=== PATIENT | male | born 1940 | race Caucasian/White ===

== ENCOUNTER → 2024-02-29 08:10 | Outpatient (REF) | payer MEDICARE, OTHER, SELFPAY ==
[2024-02-29 09:35] LABS: ALT (SGPT) 20 U/L (0-50); AST (SGOT) 29 U/L (17-59); Albumin 4.4 g/dl (3.5-5.0); Alkaline Phosphatase 104 U/L (38-126); Blood Urea Nitrogen 24 mg/dl (9-20); Carbon Dioxide 28 mmol/L (22-30); Chloride 97 mmol/L (98-107); Glucose 109 mg/dl (70-99); Sodium 138 mmol/L (135-145); Total Bilirubin 0.9 mg/dl (0.2-1.3); Total Protein 7.8 g/dl (6.3-8.2); eGFR > 60.00
== END ==
LOC: REG 08:10
PROVIDERS: ATTENDING PHYSICIAN Physician Assistant Medical; FAMILY PHYSICIAN Family Medicine
DX: Z00.8 Encounter for other general examination (principal); I42.9 Cardiomyopathy, unspecified; M79.89 Other specified soft tissue disorders
CPT/HCPCS: 36415; 80053

== ENCOUNTER 2024-03-05 00:06 | Emergency (ER) | payer MEDICARE, OTHER, SELFPAY ==
[2024-03-05 00:06] VITALS: BMI 32.9
[2024-03-05 00:10] VITALS: BP 146/76
--- NOTE | 2024-03-05 01:05 | ED.GENMED ---
History of Present Illness
General
Chief Complaint: Extremity Pain (non-traumatic)
Source: patient
Exam Limitations: none
Time Seen by Provider: 03/05/24 00:52
Travel History
Have you had any contact with someone who has COVID-19?: No
Do you have any symptoms of coronavirus? Fever > 100 degrees, chills, cough, shortness of breath, sore throat, loss of taste or smell, muscle aches, or headache?: No
History of Present Illness
History of Present Illness:
Patient with intermittent right leg pain for a long time. Comes and goes. No precipitating event. Pain is worse this evening. Pain is in the right thigh. Nonweightbearing or positional. No swelling no warmth no fever no other complaints.
Patient took Tylenol prior to ER
Past History
Past History
ED Past Medical History: CAD, Cancer (Prostate CA), GERD, HTN, Hypercholesterolemia, NIDDM, Psychiatric (Depression) and Other (Abdominal aortic aneurysm, colitis, Crohn's disease, diverticulosis, polyps, renal insufficiency, rib fractures, uveitis,)
ED Past Surgical History: Orthopedic ( L3-L4 laminectomy and fusion,) and Other ( Right nephrectomy, prostatectomy, left nasal lesion removed, cataract surgery, AAA, Right iliac artery graft, left eye surgery)
Social History
Tobacco: Former smoker
Alcohol: None
Drug: None
Personal:
Living: with family
Employment: Retired
Review of Systems
Review of Systems
All Other Systems: Not applicable
Constitutional: Denies fever
Phy Exam
Physical Exam
Physical Exam:
GENERAL: Alert and oriented. Sitting up in the bed rubbing his right anterior thigh.
CARDIAC: Regular rate and rhythm without any obvious murmurs.
LUNGS: Clear breath sounds,normal
ABDOMEN: Soft, without focal tenderness or distention. No pulsatile mass
NEUROLOGICAL: Alert and oriented , grossly non-focal
SKIN: Warm and dry, no rash or lesion, no discoloration, skin intact.
MUSCULOSKELETAL: Chronic nonpitting edema to both lower extremities. Good color to both lower extremities. No warmth or erythema. Capillary refill intact. Strong posterior tibial and dorsalis pedis pulses dopplered bilaterally. Negative
straight leg raising. No point tenderness to the right thigh no erythema no swelling.
PSYCH: Normal and appropriate interaction.
Course
Orders/Labs/Results
Orders:
Orders
03/05/24 01:04
IV Insert/Care/Rem.- Treatment PRN
US Periph Venous LOWER Ext RT Urgent
Comment:
Reason For Exam: Nontraumatic right leg pain
03/05/24 01:05
Ketorolac [Toradol] 15 mg IV NOW STA
Morphine Sulfate 2 mg IV NOW STA
03/05/24 01:40
Basic Metabolic Panel Urgent
CPK [Creatine Phosphokinase] Urgent
Complete Blood Count/With Diff Urgent
Abnormal Lab Results
03/05/24
01:40
RBC 4.32 L 10^6/uL
(4.70-6.10)
Hgb 12.1 L g/dL
(13.0-18.0)
Hct 36.0 L %
(39.0-52.0)
RDW 14.7 H %
(11.5-14.5)
Absolute Monos (auto) 0.9 H 10^3/uL
(0.1-0.6)
Monocytes % 13.5 H %
(1.7-9.3)
Potassium 3.4 L mmol/L
(3.5-5.1)
BUN 21 H mg/dl
(9-20)
Glucose 143 H mg/dl
(70-99)
Creatine Kinase 336 H U/L
(55-170)
03/05/24 01:40
03/05/24 01:40
Vital Signs
Initial and Last Documented VS:
Initial Vital Signs
Temp Pulse Resp BP Pulse Ox
98.5 F 74 18 146/76 99
03/05/24 00:10 03/05/24 00:10 03/05/24 00:10 03/05/24 00:10 03/05/24 00:10
Last Documented Vital Signs
Temp Pulse Resp BP Pulse Ox
98.5 F 74 18 153/82 98
03/05/24 00:10 03/05/24 00:10 03/05/24 00:10 03/05/24 01:41 03/05/24 02:17
MDM/Problems Addressed
Differential Diagnosis Includes:
Right thigh pain intermittent for a while. Clinically I suspect this is referred pain from the back. He history of chronic back issues. He describes no infectious issues or acute neurologic issues. He has no acute circulatory issue. Pain
management. Will get an ultrasound to rule out DVT which is unlikely.
*Radiology
Radiology exam reviewed: radiology read reviewed (Negative ultrasound)
*Pulse Oximetry
Patient hypoxic: no
*Critical Care Note
Total Time (30-74mins, 75-104mins- exclusive of procedures): Not Applicable
Update Note
Update Note:
Patient is sitting up much more comfortable. I cannot find a serious acute issue to explain his symptoms. Clinically there is no arterial or venous issue. No infectious issue. No acute neurologic issue. I suspect a radiculopathy from his back.
Pain management and follow-up. Patient told of his low potassium to follow-up
ED Attending Note
-
Portions of this chart may have been created with voice recognition software.� Occasional wrong word or��sound alike� substitutions may have occurred due to the inherent limitations of voice recognition software.
Discharge Plan
Departure
Patient Disposition: Home (Routine Discharge)
Date of Disposition: 03/05/24
Time of Disposition: 02:32
Patient with high blood pressure during this ER visit?: Yes
Discharge Problem:
Right thigh pain, Suspect radiculopathy
Instructions: Radiculopathy (DC), BLOOD PRESSURE
Prescriptions:
New
hydrocodone-acetaminophen 5-300 mg tablet
1 tab PO Q6H PRN (Reason: Pain) Qty: 14 0RF
No Action
aspirin 81 MG tablet,delayed release (DR/EC)
81 mg PO DAILY
Hold Instructions: Resume on 06/10/22. *RESUME 06/10/22*
allopurinol 100 MG tablet
100 mg PO DAILY
balsalazide [Colazal] 750 MG capsule
2,250 mg PO BID
metformin 1,000 MG tablet
1,000 mg PO BID
tobramycin-dexamethasone 0.3-0.1 % Ointment
1 applic LEFT EYE HS
clopidogrel [Plavix] 75 mg Tablet
75 mg PO DAILY
Hold Instructions: Resume on 06/10/22. *RESUME 06/10/22*
ropinirole 1 mg Tablet
2 mg PO QPM
Maxidex 0.1 % Drops,Suspension
1 drp LEFT EYE DAILY
atropine [Isopto Atropine] 1 % Drops
1 drp LEFT EYE HS
ropinirole 3 mg Tablet
3 mg PO HS
docusate sodium 100 mg Capsule
100 mg PO BID Qty: 1 0RF
carvedilol 6.25 mg Tablet
3.125 mg PO BID Qty: 60 0RF
magnesium L-lactate 84 mg Tablet Extended Release
168 mg PO DAILY Qty: 30 0RF
potassium chloride 20 mEq Tablet,Er Particles/Crystals
20 meq PO BID Qty: 60 0RF
gabapentin 100 mg Capsule
100 mg PO BID Qty: 60 0RF
Referrals:
PRIVATE,PHYSICIAN [Family Provider] -
Activity Restrictions/Additional Instructions:
Call your primary physician for close follow-up, in the next few days
Tylenol for milder pain only use the Vicodin for increased pain. However do not take it with the Tylenol since there is Tylenol in the Vicodin
Return sooner with increased pain swelling redness fever numbness tingling weakness or any other concerning symptoms
Your prescription was sent to the pharmacy
Interventions
Interventions:
*Risk Screen - Suicide Last Done: 03/05/24 00:10
*General Assessment Last Done: 03/05/24 00:10
*Neglect/Abuse Screening Last Done: 03/05/24 00:10
*ED COVID-19 Vaccine History Last Done: 03/05/24 00:23
ED-Skin Assessment Last Done: 03/05/24 00:24
ED-Peripheral Vascular Assessment Last Done: 03/05/24 00:24
ED-Musculoskeletal Assessment Last Done: 03/05/24 00:24
Discharge Date and Time
Print Language: CHINESE
[2024-03-05 01:41] VITALS: BP 153/82
[2024-03-05] MEDS: TORADOL 15 MG IV (01:42)
[2024-03-05] MEDS: MORPHINE SULFATE 2 MG IV (01:43)
[2024-03-05 02:04] LABS: Blood Urea Nitrogen 21 mg/dl (9-20); Calcium 9.5 mg/dl (8.4-10.2); Carbon Dioxide 26 mmol/L (22-30); Chloride 98 mmol/L (98-107); Creatine Phosphokinase 336 U/L (55-170); Estimated Creatinine Clearance 63 ml/min; Glucose 143 mg/dl (70-99); Potassium 3.4 mmol/L (3.5-5.1); Sodium 136 mmol/L (135-145); eGFR > 60.00
[2024-03-05 02:29] LABS: % Basophils 0.6 % (0-2); % Eosinophils 1.5 % (0-6); % Immature Granulocytes 0.3 % (0-0.5); % Lymphocytes 37.2 % (20.5-51.1); % Monocytes 13.5 % (1.7-9.3); % Neutrophils 46.9 % (42.2-75.2); Absolute Eosinophils 0.1 10^3/uL (0-0.7); Absolute Lymphocytes 2.5 10^3/uL (1.2-3.4); Absolute Monocytes 0.9 10^3/uL (0.1-0.6); Absolute Neutrophils 3.2 10^3/uL (1.4-6.5); Hemoglobin 12.1 g/dL (13.0-18.0); Mean Corp Hgb Conc. 33.6 g/dL (33.0-37.0); Mean Corpuscular Volume 83.3 fL (80.0-94.0); Mean Platelet Volume 8.9 fL (7.4-10.4); Nucleated Red Blood Cells % 0 % (-); Platelet Count 294 10^3/uL (130-400); Red Blood Cell Count 4.32 10^6/uL (4.70-6.10); Red Cell Dist. Width 14.7 % (11.5-14.5); White Blood Cell Count 6.7 10^3/uL (4.8-10.8)
[2024-03-05] MEDS: KCL ELIXIR 40 MEQ PO (02:59)
[2024-03-05 03:00] VITALS: BP 159/78
== END 2024-03-05 03:20 | disposition home or self-care (01) ==
LOC: EMR 00:06
PROVIDERS: EMERGENCY PHYSICIAN Emergency Medicine
DX: M79.651 Pain in right thigh (principal); I25.10 Atherosclerotic heart disease of native coronary artery without angina pectoris; I10 Essential (primary) hypertension; E78.00 Pure hypercholesterolemia, unspecified; E11.9 Type 2 diabetes mellitus without complications; K21.9 Gastro-esophageal reflux disease without esophagitis; K50.90 Crohn's disease, unspecified, without complications; Z85.46 Personal history of malignant neoplasm of prostate; Z87.891 Personal history of nicotine dependence; Z90.5 Acquired absence of kidney; Z90.79 Acquired absence of other genital organ(s)
CPT/HCPCS: 99284; 96374; 96375; 80048; 82550; 85025; 93971

== ENCOUNTER 2024-03-08 21:22 | Emergency (ER) | payer MEDICARE, OTHER, SELFPAY ==
[2024-03-08 21:23] VITALS: BP 133/70
[2024-03-08 21:55] VITALS: BP 129/68
[2024-03-08 22:00] VITALS: BP 147/63
--- NOTE | 2024-03-08 22:17 | ED.GENMED ---
History of Present Illness
<MIGUEL A Guerrero - Last Filed: 03/08/24 22:38>
General
Chief Complaint: Musculo-Skeletal Complaint
Source: patient, records and spouse
Time Seen by Provider: 03/08/24 22:04
Travel History
Have you had any contact with someone who has COVID-19?: No
Do you have any symptoms of coronavirus? Fever > 100 degrees, chills, cough, shortness of breath, sore throat, loss of taste or smell, muscle aches, or headache?: No
History of Present Illness
History of Present Illness:
83 year old male with hx of DM, HTN, HLD, CAD, AAA, CKD, prostate CA who presents with bilateral thigh pain that began this morning, worsened tonight. Pt has a hx of intermittent leg pain for a long time. He was seen here on 03/05/24 for right thigh
pain. US of R leg was obtained and showed no evidence of DVT. Pt was discharged for PCP follow-up and Vicodin for severe pain control. Tonight he represents with similar pain. Pain is described as achy, 10/10 strength and localized to bilateral
anterior and posterior thighs, from waist to the knee. States the pain began this morning progressively worsened throughout the day. He has not taken anything for the pain. Pain slightly worsens with movement. He has a hx of bilateral lower leg
edema and has numbness to his feet. He has chronic lower back pain s/p lumbar surgery in 2021. Denies trauma or injury. Denies chest pain, SOB, abdominal pain, n/v/d, fevers/chills, tingling, urinary or bowel incontinence. Pt has not seen anyone for
this pain since leaving the hospital 3 days ago. He is ambulatory. does note pt appears to have mild unsteady gait. Pt admits to a fall which he states was 'a long time ago'.
<Fidel Engel DO - Last Filed: 03/08/24 22:59>
General
Exam Limitations: none
Past History
<MIGUEL A Guerrero - Last Filed: 03/08/24 22:38>
Past History
ED Past Medical History: CAD, Cancer (Prostate CA), GERD, HTN, Hypercholesterolemia, NIDDM, Psychiatric (Depression) and Other (Abdominal aortic aneurysm, colitis, Crohn's disease, diverticulosis, polyps, renal insufficiency, rib fractures, uveitis,)
ED Past Surgical History: Orthopedic ( L3-L4 laminectomy and fusion,) and Other ( Right nephrectomy, prostatectomy, left nasal lesion removed, cataract surgery, AAA, Right iliac artery graft, left eye surgery)
Social History
Tobacco: Former smoker
Alcohol: None
Drug: None
Personal:
Living: with family
Employment: Retired
Review of Systems
<MIGUEL A Guerrero - Last Filed: 03/08/24 22:38>
Review of Systems
Allergies reviewed?: Yes
All Other Systems: ROS reviewed and negative except as documented in HPI and ROS
Constitutional: Reports no symptoms
EENT: Reports no symptoms
Respiratory: Reports no symptoms
Cardiac: Reports no symptoms
ABD/GI: Reports no symptoms
: Reports no symptoms
Musculoskeletal: Reports muscle pain (bilateral thigh)
Skin: Reports no symptoms
Neurological: Reports numbness (bilateral lower legs)
Endocrine: Reports no symptoms
Hematologic/Lymphatic: Reports no symptoms
Psychiatric: Reports no symptoms
Phy Exam
<MIGUEL A Guerrero - Last Filed: 03/08/24 22:38>
General Physical Exam
General Presentation: well appearing and no apparent distress
General age: appears stated age
General Skin: warm and dry
General Habitus: normal
General Mental: alert
General Hydration: appears well hydrated
Cardiovascular Exam
Cardiovascular Exam: regular rate/rhythm, no edema, no gallop, no murmur and normal peripheral pulses
Pulmonary Exam
Pulmonary Exam: lungs clear, no respiratory distress, no rales, no crackles, no rhonchi, no wheezing and no cough
Neurological Exam
Neurological Exam: alert, oriented x3, CN II-XII intact, no motor deficits and no sensory deficits
Musculoskeletal Exam
Musculoskeletal Exam: full ROM (all 4 extremities, mild pain with ROM of bilateral legs), back pain (lower lumbar midline tenderness to palpation), edema (mild bilateral pretibial edema) and neuro vasc intact (bilateral lower extremities, dp and pt
pulses intact bilaterally)
Skin Exam
Skin Exam: normal color and warm/dry
Psychiatric Exam
Psychiatric Exam: normal mood/affect
Course
<MIGUEL A Guerrero - Last Filed: 03/08/24 22:38>
Orders/Labs/Results
Orders:
Orders
03/08/24 22:42
Gabapentin [Neurontin] 300 mg PO NOW STA
Vital Signs
Initial and Last Documented VS:
Initial Vital Signs
Temp Pulse Resp BP Pulse Ox
98.2 F 80 22 133/70 98
03/08/24 21:23 03/08/24 21:23 03/08/24 21:23 03/08/24 21:23 03/08/24 21:23
Last Documented Vital Signs
Temp Pulse Resp BP Pulse Ox
98.2 F 80 22 133/70 98
03/08/24 21:23 03/08/24 21:23 03/08/24 21:23 03/08/24 21:23 03/08/24 21:23
<Fidel Engel DO - Last Filed: 03/08/24 22:59>
Orders/Labs/Results
Orders:
Orders
03/08/24 22:42
Gabapentin [Neurontin] 300 mg PO NOW STA
Vital Signs
Initial and Last Documented VS:
Initial Vital Signs
Temp Pulse Resp BP Pulse Ox
98.2 F 80 22 133/70 98
03/08/24 21:23 03/08/24 21:23 03/08/24 21:23 03/08/24 21:23 03/08/24 21:23
Last Documented Vital Signs
Temp Pulse Resp BP Pulse Ox
98.2 F 80 22 133/70 98
03/08/24 21:23 03/08/24 21:23 03/08/24 21:23 03/08/24 21:23 03/08/24 21:23
<MIGUEL A Guerrero - Last Filed: 03/08/24 22:38>
MDM/Problems Addressed
Differential Diagnosis Includes:
radiculopathy, DVT, muscle strain
MDM/Problems Addressed:
83 year old male who presents with bilateral thigh pain that began this morning that worsened tonight.
Chronic conditions affecting care: DM, HTN, CAD, Cardiomyopathy, Previous abdomnial surgery and Cancer
<MIGUEL A Guerrero - Last Filed: 03/08/24 22:38>
*Critical Care Note
Total Time (30-74mins, 75-104mins- exclusive of procedures): Not Applicable
<Fidel Engel DO - Last Filed: 03/08/24 22:59>
*Pulse Oximetry
Patient hypoxic: no
*EKG
Interpreted by ED Provider?: NA
*Senior Clinical Research Scientist Interpretation
Rate: Senior Clinical Research Scientist- N/A
Data Reviewed
Review of Other/Old Records Reveals: Operative Reports (06/05/2022, Dr. Shabazz, decompressive lumbar laminectomy L3-L4 with onlay fusion)
Further Testing Considered But Not Given:
MRI not indicated
<Fidel Engel DO - Last Filed: 03/08/24 22:59>
Patient Management
Social determinants of health affecting care: Strong social support
Escalation/DeEscalation of care consider admission/obs:
Admit not indicated
ED Attending Note
<ST CesarPA - Last Filed: 03/08/24 22:38>
-
Portions of this chart may have been created with voice recognition software.� Occasional wrong word or��sound alike� substitutions may have occurred due to the inherent limitations of voice recognition software.
<Fidel Engel DO - Last Filed: 03/08/24 22:59>
ED Attending Note
Patient seen and examined by attending physician: Yes
I performed a history and physical exam of patient and discussed management with resident, I reviewed resident's note and agree with documented findings and plan of care.: Yes
ED Attending Note:
I have reviewed and agree with history and treatment plan by Mari Turpin, exam revealed normal sensation and neurovascularly extremities. Pulses 4+ dorsalis pedis and posterior tibialis bilaterally. Will prescribe gabapentin 300 mg 3 times
daily, follow-up with pain management.
Discharge Plan
Departure
Patient Disposition: Home (Routine Discharge)
Date of Disposition: 03/08/24
Time of Disposition: 22:57
Patient with high blood pressure during this ER visit?: Yes
Condition: Good
Discharge Problem:
Bilateral lumbar radiculopathy
Instructions: Radiculopathy (DC), BLOOD PRESSURE
Prescriptions:
No Action
aspirin 81 MG tablet,delayed release (DR/EC)
81 mg PO DAILY
Hold Instructions: Resume on 06/10/22. *RESUME 06/10/22*
allopurinol 100 MG tablet
100 mg PO DAILY
balsalazide [Colazal] 750 MG capsule
2,250 mg PO BID
metformin 1,000 MG tablet
1,000 mg PO BID
tobramycin-dexamethasone 0.3-0.1 % Ointment
1 applic LEFT EYE HS
clopidogrel [Plavix] 75 mg Tablet
75 mg PO DAILY
Hold Instructions: Resume on 06/10/22. *RESUME 06/10/22*
ropinirole 1 mg Tablet
2 mg PO QPM
Maxidex 0.1 % Drops,Suspension
1 drp LEFT EYE DAILY
atropine [Isopto Atropine] 1 % Drops
1 drp LEFT EYE HS
ropinirole 3 mg Tablet
3 mg PO HS
docusate sodium 100 mg Capsule
100 mg PO BID Qty: 1 0RF
carvedilol 6.25 mg Tablet
3.125 mg PO BID Qty: 60 0RF
magnesium L-lactate 84 mg Tablet Extended Release
168 mg PO DAILY Qty: 30 0RF
potassium chloride 20 mEq Tablet,Er Particles/Crystals
20 meq PO BID Qty: 60 0RF
gabapentin 100 mg Capsule
100 mg PO BID Qty: 60 0RF
hydrocodone-acetaminophen 5-300 mg tablet
1 tab PO Q6H PRN (Reason: Pain) Qty: 14 0RF
Referrals:
Bar Velasco MD [Active] - Call in 1-3 days for appt
Interventions
Interventions:
*Risk Screen - Suicide Last Done: 03/08/24 21:56
*General Assessment Last Done: 03/08/24 21:56
*Neglect/Abuse Screening Last Done: 03/08/24 21:56
ED- Fall Risk Assessment Last Done: 03/08/24 21:56
*ED COVID-19 Vaccine History Last Done: 03/08/24 21:56
ED-Musculoskeletal Assessment Last Done: 03/08/24 21:56
Discharge Date and Time
Print Language: ITALIAN
[2024-03-08] MEDS: NEURONTIN 300 MG PO (22:53)
[2024-03-08 23:00] VITALS: BP 165/81
[2024-03-08 23:01] VITALS: BP 165/81
== END 2024-03-08 23:13 | disposition home or self-care (01) ==
LOC: EMR 21:22
PROVIDERS: EMERGENCY PHYSICIAN Emergency Medicine
DX: M54.16 Radiculopathy, lumbar region (principal); I12.9 Hypertensive chronic kidney disease with stage 1 through stage 4 chronic kidney disease, or unspecified chronic kidney disease; E11.22 Type 2 diabetes mellitus with diabetic chronic kidney disease; N18.9 Chronic kidney disease, unspecified; I25.10 Atherosclerotic heart disease of native coronary artery without angina pectoris; E78.00 Pure hypercholesterolemia, unspecified; G89.29 Other chronic pain; K21.9 Gastro-esophageal reflux disease without esophagitis; K50.90 Crohn's disease, unspecified, without complications; Z79.899 Other long term (current) drug therapy; Z85.46 Personal history of malignant neoplasm of prostate; Z86.79 Personal history of other diseases of the circulatory system; Z87.891 Personal history of nicotine dependence; Z90.5 Acquired absence of kidney; Z90.79 Acquired absence of other genital organ(s)
CPT/HCPCS: 99282

== ENCOUNTER 2024-04-04 08:24 | Emergency (ER) | payer MEDICARE, OTHER, SELFPAY ==
[2024-04-04 08:24] VITALS: BMI 34.5
[2024-04-04 08:26] VITALS: BP 161/90
[2024-04-04 10:20] VITALS: BP 171/92
--- NOTE | 2024-04-04 10:37 | ED.GENMED ---
History of Present Illness
<Sorin Payan DO, Resident - Last Filed: 04/04/24 12:16>
General
Chief Complaint: Musculo-Skeletal Complaint
Source: patient
Time Seen by Provider: 04/04/24 10:12
History of Present Illness
History of Present Illness:
Patient is a 83 YO M presenting to the ED with complaints of worsening back and bilateral leg pain. He reports that his right leg hurts more than left, there has been increased bilateral swelling in the legs and there is tenderness to touch at the
level of mid-canas and below. He reports no recent illness, sick contacts, long drives, flights or hospital admissions. He was recently seen in the ED and given Gabapentin for pain.
Past History
<Sorin Payan DO, Resident - Last Filed: 04/04/24 12:16>
Past History
ED Past Medical History: CAD, Cancer (Prostate CA), GERD, HTN, Hypercholesterolemia, NIDDM, Psychiatric (Depression) and Other (Abdominal aortic aneurysm, colitis, Crohn's disease, diverticulosis, polyps, renal insufficiency, rib fractures, uveitis,)
ED Past Surgical History: Orthopedic ( L3-L4 laminectomy and fusion,) and Other ( Right nephrectomy, prostatectomy, left nasal lesion removed, cataract surgery, AAA, Right iliac artery graft, left eye surgery)
Social History
Tobacco: Former smoker
Alcohol: None
Drug: None
Personal:
Living: with family
Employment: Retired
Review of Systems
<Sorin Payan DO, Resident - Last Filed: 04/04/24 12:16>
Review of Systems
Constitutional: Reports other (pain)
EENT: Reports no symptoms
Respiratory: Reports no symptoms
Cardiac: Reports no symptoms
ABD/GI: Reports no symptoms
: Reports no symptoms
Musculoskeletal: Reports muscle pain, back pain and other (foot and leg swelling, right sided leg stiffness)
Skin: Reports no symptoms
Neurological: Reports weakness, numbness and other (tingling in feet)
Psychiatric: Reports no symptoms
Phy Exam
<Sorin Payan DO, Resident - Last Filed: 04/04/24 12:16>
General Physical Exam
General Presentation: well appearing and mild distress
General age: appears stated age
General Skin: warm and dry
General Habitus: normal
General Mental: alert
General Hydration: appears well hydrated
Cardiovascular Exam
Cardiovascular Exam: regular rate/rhythm, no edema, no gallop, no JVD, no murmur and normal peripheral pulses
Pulmonary Exam
Pulmonary Exam: lungs clear, no respiratory distress, no rales, chest non tender, no crackles, no rhonchi, no stridor, no wheezing and no cough
Gastrointestinal Exam
Gastrointestinal Exam: non tender, soft, no pulsatile mass and non distended
Neurological Exam
Neurological Exam: alert, no motor deficits, no sensory deficits and speech normal
Musculoskeletal Exam
Musculoskeletal Exam: full ROM, back pain and other (leg swelling, erythema)
Psychiatric Exam
Psychiatric Exam: normal mood/affect
Course
<Sorin Payan DO, Resident - Last Filed: 04/04/24 12:16>
Orders/Labs/Results
Orders:
Orders
04/04/24 10:36
Oxycodone [Roxicodone] 5 mg PO NOW STA
04/04/24 10:44
Prednisone [Deltasone] 50 mg PO NOW STA
Vital Signs
Initial and Last Documented VS:
Initial Vital Signs
Temp Pulse BP Pulse Ox
97.8 F 72 161/90 96
04/04/24 08:26 04/04/24 08:26 04/04/24 08:26 04/04/24 08:26
Last Documented Vital Signs
Temp Pulse Resp BP Pulse Ox
97.8 F 68 16 175/83 98
04/04/24 08:26 04/04/24 10:20 04/04/24 10:20 04/04/24 11:00 04/04/24 10:20
<Tim Tian DO - Last Filed: 04/04/24 14:48>
Orders/Labs/Results
Orders:
Orders
04/04/24 10:36
Oxycodone [Roxicodone] 5 mg PO NOW STA
04/04/24 10:44
Prednisone [Deltasone] 50 mg PO NOW STA
Vital Signs
Initial and Last Documented VS:
Initial Vital Signs
Temp Pulse BP Pulse Ox
97.8 F 72 161/90 96
04/04/24 08:26 04/04/24 08:26 04/04/24 08:26 04/04/24 08:26
Last Documented Vital Signs
Temp Pulse Resp BP Pulse Ox
97.8 F 68 16 175/83 98
04/04/24 08:26 04/04/24 10:20 04/04/24 10:20 04/04/24 11:00 04/04/24 10:20
<Sorin Payan DO, Resident - Last Filed: 04/04/24 12:16>
MDM/Problems Addressed
Differential Diagnosis Includes:
lumbar radiculopathy
MDM/Problems Addressed:
Pt is a 83 YO M with progressive back and bilateral leg pain. 5 mg Oxycodone and 50 mg Prednisone given in ED for symptom management. Script of 4 days of Prednisone given to continue at home.
Chronic conditions affecting care:
spondilolisthesis
Acute Exacerbation and/or Progression of Chronic Illness:
spondylolisthesis
<Sorin Payan DO, Resident - Last Filed: 04/04/24 12:16>
*Pulse Oximetry
Patient hypoxic: no
*EKG
Interpreted by ED Provider?: NA
*Chicken Boner Interpretation
Rate: Chicken Boner- N/A
*Critical Care Note
Total Time (30-74mins, 75-104mins- exclusive of procedures): Not Applicable
ED Attending Note
<Sorin Payan DO, Resident - Last Filed: 04/04/24 12:16>
-
Portions of this chart may have been created with voice recognition software.� Occasional wrong word or��sound alike� substitutions may have occurred due to the inherent limitations of voice recognition software.
<Tim Tian DO - Last Filed: 04/04/24 14:48>
ED Attending Note
Patient seen and examined by attending physician: Yes
I performed a history and physical exam of patient and discussed management with resident, I reviewed resident's note and agree with documented findings and plan of care.: Yes
ED Attending Note:
I agree with the resident's note
Patient complaining of pain in his back rating down his right leg.
Neurologic exam is intact
Back exam shows some tenderness to palpation right paraspinal lumbar musculature
Adjust medications. Stable for outpatient follow-up
Discharge Plan
Departure
Patient Disposition: Home (Routine Discharge)
Date of Disposition: 04/04/24
Time of Disposition: 10:53
Patient with high blood pressure during this ER visit?: Yes
Condition: Fair
Discharge Problem:
Bilateral lumbar radiculopathy
Instructions: Radiculopathy of the neck and back (including sciatica), BLOOD PRESSURE
Prescriptions:
New
methylprednisolone [Medrol (Miguel Angel)] 4 mg tablets,dose pack
See Rx Instructions .ROUTE .COMPLEX Qty: 21 0RF
Rx Instructions:
orally per package directions
No Action
aspirin 81 MG tablet,delayed release (DR/EC)
81 mg PO DAILY
Hold Instructions: Resume on 06/10/22. *RESUME 06/10/22*
allopurinol 100 MG tablet
100 mg PO DAILY
balsalazide [Colazal] 750 MG capsule
2,250 mg PO BID
metformin 1,000 MG tablet
1,000 mg PO BID
tobramycin-dexamethasone 0.3-0.1 % Ointment
1 applic LEFT EYE HS
clopidogrel [Plavix] 75 mg Tablet
75 mg PO DAILY
Hold Instructions: Resume on 06/10/22. *RESUME 06/10/22*
ropinirole 1 mg Tablet
2 mg PO QPM
Maxidex 0.1 % Drops,Suspension
1 drp LEFT EYE DAILY
atropine [Isopto Atropine] 1 % Drops
1 drp LEFT EYE HS
ropinirole 3 mg Tablet
3 mg PO HS
docusate sodium 100 mg Capsule
100 mg PO BID Qty: 1 0RF
carvedilol 6.25 mg Tablet
3.125 mg PO BID Qty: 60 0RF
magnesium L-lactate 84 mg Tablet Extended Release
168 mg PO DAILY Qty: 30 0RF
potassium chloride 20 mEq Tablet,Er Particles/Crystals
20 meq PO BID Qty: 60 0RF
gabapentin 100 mg Capsule
100 mg PO BID Qty: 60 0RF
hydrocodone-acetaminophen 5-300 mg tablet
1 tab PO Q6H PRN (Reason: Pain) Qty: 14 0RF
Referrals:
Jas Bailey MD [Family Provider] - Call in 1-3 days for appt
Interventions
Interventions:
*Risk Screen - Suicide Last Done: 04/04/24 10:20
*General Assessment Last Done: 04/04/24 10:20
*Neglect/Abuse Screening Last Done: 04/04/24 10:20
ED- Fall Risk Assessment Last Done: 04/04/24 11:13
*ED COVID-19 Vaccine History Last Done: 04/04/24 10:20
*Nursing Disposition Last Done: 04/04/24 11:13
ED-Musculoskeletal Assessment Last Done: 04/04/24 10:20
Discharge Date and Time
Discharge Date/Time: 04/04/24 11:22
Print Language: UPPER SORBIAN
[2024-04-04] MEDS: ROXICODONE 5 MG PO (10:43)
[2024-04-04] MEDS: DELTASONE 50 MG PO (10:45)
[2024-04-04 11:00] VITALS: BP 175/83
== END 2024-04-04 11:22 | disposition home or self-care (01) ==
LOC: EMR 08:24
PROVIDERS: EMERGENCY PHYSICIAN Emergency Medicine; FAMILY PHYSICIAN Family Medicine; OTHER PHYSICIAN Internal Medicine Interventional Cardiology; REFERRING PHYSICIAN Specialist
DX: M54.16 Radiculopathy, lumbar region (principal); I10 Essential (primary) hypertension; Z87.891 Personal history of nicotine dependence
CPT/HCPCS: 99283

== ENCOUNTER → 2024-08-11 08:39 | Outpatient (REF) | payer MEDICARE, OTHER, SELFPAY ==
[2024-08-11 10:13] LABS: Blood Urea Nitrogen 18 mg/dl (9-20); Calcium 9.6 mg/dl (8.4-10.2); Carbon Dioxide 27 mmol/L (22-30); Chloride 99 mmol/L (98-107); Glucose 101 mg/dl (70-99); Potassium 4.8 mmol/L (3.5-5.1); Sodium 142 mmol/L (135-145); eGFR > 60.00
[2024-08-11 10:30] LABS: Urine Protein 8 mg/dl (0-12)
== END ==
LOC: REG 08:39
PROVIDERS: ATTENDING PHYSICIAN Specialist; FAMILY PHYSICIAN Family Medicine
DX: I10 Essential (primary) hypertension (principal); N18.2 Chronic kidney disease, stage 2 (mild)
CPT/HCPCS: 36415; 80048; 82570; 84156

== ENCOUNTER → 2024-10-05 09:49 | Outpatient (REF) | payer MEDICARE, OTHER, SELFPAY | LOC: RAD 09:49 | PROVIDERS: ATTENDING PHYSICIAN Surgery Vascular Surgery; FAMILY PHYSICIAN Physician Assistant Medical | DX: I73.9 Peripheral vascular disease, unspecified (principal); I71.40 Abdominal aortic aneurysm, without rupture, unspecified | CPT/HCPCS: 76770; 93922; 93925 ==

== ENCOUNTER → 2025-02-12 09:40 | Outpatient (REF) | payer MEDICARE, OTHER, SELFPAY ==
[2025-02-12 11:11] LABS: ALT (SGPT) 18 U/L (0-50); AST (SGOT) 23 U/L (17-59); Albumin 4.8 g/dl (3.5-5.0); Alkaline Phosphatase 98 U/L (38-126); Blood Urea Nitrogen 23 mg/dl (9-20); Calcium 9.9 mg/dl (8.4-10.2); Carbon Dioxide 28 mmol/L (22-30); Chloride 106 mmol/L (98-107); Glucose 95 mg/dl (70-99); HDL Cholesterol 38 mg/dl; LDL Cholesterol, Calculated 123 mg/dl; Sodium 145 mmol/L (135-145); Total Bilirubin 1.1 mg/dl (0.2-1.3); Total Cholesterol 214 mg/dl (50-199); Total Protein 8.2 g/dl (6.3-8.2); Triglyceride 266 mg/dl (10-149); Very Low Density Lipoprotein 53 mg/dl (0-30); eGFR 59.63
[2025-02-12 11:16] LABS: Potassium 4.8 mmol/L (3.5-5.1)
== END ==
LOC: REG 09:40
PROVIDERS: ATTENDING PHYSICIAN Internal Medicine Interventional Cardiology; FAMILY PHYSICIAN Physician Assistant Medical
DX: E78.2 Mixed hyperlipidemia (principal)
CPT/HCPCS: 36415; 80053; 80061

== ENCOUNTER → 2025-05-12 07:06 | Outpatient (REF) | payer MEDICARE, OTHER, SELFPAY | LOC: RAD 07:06 | PROVIDERS: ATTENDING PHYSICIAN Surgery Vascular Surgery; FAMILY PHYSICIAN Student in an Organized Health Care Education/Training Program | DX: I71.43 Infrarenal abdominal aortic aneurysm, without rupture (principal); I73.9 Peripheral vascular disease, unspecified | CPT/HCPCS: 76770; 93922; 93925 ==

== ENCOUNTER → 2025-08-11 12:12 | Outpatient (REF) | payer MEDICARE, OTHER, SELFPAY | LOC: RCS 12:12 | PROVIDERS: ATTENDING PHYSICIAN Internal Medicine Interventional Cardiology; FAMILY PHYSICIAN Student in an Organized Health Care Education/Training Program | DX: I42.9 Cardiomyopathy, unspecified (principal) | CPT/HCPCS: 93306 ==

== ENCOUNTER → 2025-09-04 08:10 | Outpatient (REF) | payer MEDICARE, OTHER, SELFPAY ==
[2025-09-04 10:19] LABS: ALT (SGPT) 19 U/L (0-50); AST (SGOT) 25 U/L (17-59); Albumin 5.0 g/dl (3.5-5.0); Alkaline Phosphatase 127 U/L (38-126); Blood Urea Nitrogen 20 mg/dl (9-20); Calcium 10.0 mg/dl (8.4-10.2); Carbon Dioxide 27 mmol/L (22-30); Chloride 100 mmol/L (98-107); Glucose 99 mg/dl (70-99); HDL Cholesterol 49 mg/dl; LDL Cholesterol, Calculated 176 mg/dl; Potassium 3.9 mmol/L (3.5-5.1); Sodium 139 mmol/L (135-145); Total Protein 8.5 g/dl (6.3-8.2); Very Low Density Lipoprotein 40 mg/dl (0-30); eGFR 59.26
== END ==
LOC: REG 08:10
PROVIDERS: ATTENDING PHYSICIAN Internal Medicine Interventional Cardiology; REFERRING PHYSICIAN Specialist
DX: E78.2 Mixed hyperlipidemia (principal)
CPT/HCPCS: 36415; 80053; 80061